=== PATIENT | female | born 1960 | race Caucasian/White ===

== ENCOUNTER → 2016-10-01 10:32 | Outpatient (CLI) | payer MEDICAID ==
[2015-10-19 08:49] VITALS: BMI 18.9
[~2016-10-01 10:32] MED LIST: BAYER CHEWABLE81 MG PO; CARAFATE1 G PO; ESTRACE1 MG PO; KLONOPIN1 MG PO; LOPRESSOR25 MG PO; PEPCID20 MG PO; PERCOCET 10/3251 TA1 PO; PHENERGAN25 MG RC; ROBAXIN-750750 MG PO; ZENPEP PO; ZOFRAN ODT4 MG/UDTAB PO
--- NOTE | 2016-10-16 14:37 | ST ---
PATIENT:ESTEFANY CAO MEDICAL RECORD: [id number] SEX: F LOCATION:[facility] ORDER #: ADMISSION DATE: 10/01/16 AGE OF PATIENT: 56 REFERRING PHYSICIAN: INTERPRETING PHYSICIAN: NARCISA MENESES MD DATE OF SERVICE: 10/01/2016 Nuclear Stress Test INDICATION: Chest pain of unknown etiology. She was stressed standard Lexiscan protocol with 32.4 mCi of sestamibi injected at peak stress, 11.9 mCi were used previously for rest images. FINDINGS: Gated SPECT reveals preserved ejection fraction greater than 60% with good wall motion and thickening and brightening throughout all segments. SPECT imaging sestamibi is used as myocardial fusion agent. There is homogeneous uptake throughout all segments at rest and stress with no evidence of inducible ischemia or previous infarction. OVERALL IMPRESSION: 1. This is a normal nuclear stress test with no evidence of inducible ischemia or previous infarction. 2. Gated SPECT reveals preserved ejection fraction greater than 60% in this patient with ongoing symptomatology. The current scan does not suggest the presence of hemodynamically significant coronary artery disease. Evaluate noncardiac etiology of chest pain. TRANSINT:[id number] Voice Confirmation ID: [id number] DOCUMENT ID: [id number] NARCISA MENESES MD at 1437 CC: [id number] DICTATION DATE: 10/02/16 1115 SCRUB NURSE: 10/03/16 0047 DEP CLI 10/01/16 [id number] [place] [address]
== END | disposition home or self-care (01) ==
LOC: D.NM 10:32
DX: R07.9 Chest pain, unspecified (principal)

== ENCOUNTER → 2017-01-09 09:37 | Outpatient (CLI) | payer MEDICAID ==
[2015-10-19 08:49] VITALS: BMI 18.9
== END | disposition home or self-care (01) ==
LOC: D.RAD 09:37
DX: R13.10 Dysphagia, unspecified (principal)

== ENCOUNTER 2017-04-16 11:42 | Emergency (ER) | payer MEDICAID ==
[2015-10-19 08:49] VITALS: BMI 18.9
== END 2017-04-16 16:00 | disposition home or self-care (01) ==
LOC: D.ER 11:42
DX: R51 Headache (principal); M54.2 Cervicalgia; M25.511 Pain in right shoulder; M25.521 Pain in right elbow; V43.52XA Car driver injured in collision with other type car in traffic accident, initial encounter; Y93.89 Activity, other specified; Y92.410 Unspecified street and highway as the place of occurrence of the external cause; I10 Essential (primary) hypertension

== ENCOUNTER 2017-04-25 18:43 | Emergency (ER) | payer MEDICAID ==
[2015-10-19 08:49] VITALS: BMI 18.9
[2017-04-25 19:38] LABS: BASOPHILS 0.8 % (0-2); EOSINOPHILS 2.6 % (0-7); HEMATOCRIT 36.8 % (36.0-48.0); HEMOGLOBIN 13.3 g/dL (12-16); IMMATURE GRANULOCYTES 0.2 % (0-5); LYMPHOCYTES 35.4 % (15-50); MCH 34.2 pg (26.0-34.0); MCHC 36.1 g/dL (31.0-37.0); MCV 94.6 fL (80.0-100.0); MEAN PLATELET VOLUME 10.5 fL (7.4-10.4); MONOCYTES 7.9 % (2-11); NEUTROPHILS 53.1 % (40-80); PLATELET COUNT 160 10x3/uL (130-400); RBC 3.89 10x6/uL (4.00-5.40); RDW 12.6 % (11.5-14.5); WBC 5.3 10x3/uL (4.8-10.8)
[2017-04-25 19:53] LABS: ANION GAP 15.8 mmol/L (8-16); BILIRUBIN - TOTAL 0.5 mg/dL (0.2-1.3); CALCIUM 9.3 mg/dL (8.5-10.1); CARBON DIOXIDE 24.9 mmol/L (21.0-32.0); CREATININE - SERUM 0.9 mg/dL (0.6-1.3); MAGNESIUM - SERUM 1.3 mg/dL (1.8-2.4); POTASSIUM - SERUM 3.7 mmol/L (3.5-5.1); PROTEIN - SERUM 7.4 g/dL (6.4-8.2)
== END 2017-04-25 22:05 | disposition home or self-care (01) ==
LOC: D.ER 18:43
PROVIDERS: Emergency Medicine
DX: R56.9 Unspecified convulsions (principal); F17.200 Nicotine dependence, unspecified, uncomplicated

== ENCOUNTER → 2017-05-29 10:07 | Outpatient (CLI) | payer MEDICAID ==
[2015-10-19 08:49] VITALS: BMI 18.9
[2017-05-29 10:50] LABS: ALBUMIN 3.7 g/dL (3.4-5.0); ANION GAP 13.2 mmol/L (8-16); BILIRUBIN - TOTAL 0.6 mg/dL (0.2-1.3); CALCIUM 9.1 mg/dL (8.5-10.1); CARBON DIOXIDE 26.8 mmol/L (21.0-32.0); CREATININE - SERUM 0.9 mg/dL (0.6-1.3); MAGNESIUM - SERUM 1.7 mg/dL (1.8-2.4); PROTEIN - SERUM 7.8 g/dL (6.4-8.2)
--- NOTE | 2017-06-02 07:59 | EEG ---
PATIENT:ESTEFANY CAO DATE OF SERVICE: 05/29/17 MEDICAL RECORD: [id number] DATE OF : 60 LOCATION: [facility] ADMISSION DATE: 05/29/17 REFERRING PHYSICIAN: INTERPRETING PHYSICIAN: YINKA MORENO MD DATE OF SERVICE: 05/29/2017 Referred as an outpatient by myself. EEG NUMBER: [id number] DATE OF EXAMINATION: 05/29/2017 at 12:00 noon. DATE OF : 1960 TECHNICAL DATA: This electroencephalographic recording consists of approximately 20 minutes of data collection utilizing the international 10/20 system of electrode placement and both referential and non-referential montages. Sixteen channels of electrocerebral recording are accompanied by 17th channel dedicated to the electrocardiographic rhythm and 2 channels of electromyographic recording. Recording is performed in the awake and sleep states utilizing activation by photic stimulation. ELECTROENCEPHALOGRAPHIC DATA: The awake state comprises only approximately 20% of the recorded electrocerebral activity. Electromyographic artifact is prominent and rapid eye movements are seen. The posterior dominant background consists of a well-developed symmetric semi-rhythmic waxing and waning alpha activity of 9-10 Hz, which is suppressed by eye opening. The drowsy state comprises approximately 60% of the recorded electrocerebral activity. Electromyographic artifact is diminished and rapid eye movements are not seen. The posterior dominant background is relatively suppressed. The transition to stage II sleep, which comprises the remaining portion of the recorded electrocerebral activity is heralded by the appearance of typical 15 Hz sleep spindles. Rare sharp vertex waves are observed. No abnormal or focal slowing is identified. No epileptiform discharges are seen. Photic stimulation induces no abnormal change in the recorded electrocerebral activity. INTERPRETATION: Normal (awake and asleep). This is a normal electroencephalographic recording. TRANSINT:[id number] Voice Confirmation ID: [id number] DOCUMENT ID: [id number] ELECTROENCEPHALOGRAM REPORT [id number] CAOESTEFANY MATA YINKA MORENO MD at 0759 CC: [id number] DICTATION DATE: 05/30/17830 SPORTS MANAGEMENT PROFESSOR: 05/30/17 1235 DEP CLI 05/29/17 [place] [address]
== END | disposition home or self-care (01) ==
LOC: D.CN 05-22 13:00
PROVIDERS: Psychiatry & Neurology Neurology
DX: R56.9 Unspecified convulsions (principal)

== ENCOUNTER → 2018-03-13 14:03 | Outpatient (CLI) | payer MEDICAID ==
[2015-10-19 08:49] VITALS: BMI 18.9
== END | disposition home or self-care (01) ==
LOC: D.CT 02-17 08:30
DX: R10.32 Left lower quadrant pain (principal)

== ENCOUNTER → 2018-03-17 11:39 | Outpatient (CLI) | payer MEDICAID ==
[2015-10-19 08:49] VITALS: BMI 18.9
== END | disposition home or self-care (01) ==
LOC: D.RAD 03-13 13:00
DX: R13.12 Dysphagia, oropharyngeal phase (principal)

== ENCOUNTER 2018-03-28 16:00 | Emergency (ER) | payer MEDICAID ==
[~2018-03-28] VITALS: Ht 154.9 cm; Wt 50.0 kg
[2018-03-28 16:04] VITALS: Ht 154.9 cm; Wt 50.0 kg
[2018-03-28 18:40] VITALS: BP 163/83
== END 2018-03-28 18:40 | disposition home or self-care (01) ==
LOC: D.ER 16:00
DX: G43.909 Migraine, unspecified, not intractable, without status migrainosus (principal); I10 Essential (primary) hypertension; I25.10 Atherosclerotic heart disease of native coronary artery without angina pectoris

== ENCOUNTER → 2018-06-27 09:46 | Outpatient (CLI) | payer MEDICAID ==
[2018-03-28 16:04] VITALS: BMI 20.8
== END | disposition home or self-care (01) ==
LOC: D.HCCARDIO 09:30
DX: I25.119 Atherosclerotic heart disease of native coronary artery with unspecified angina pectoris (principal)

== ENCOUNTER → 2018-07-17 06:05 | Outpatient (CLI) | payer MEDICAID ==
[2018-03-28 16:04] VITALS: BMI 20.8
[~2018-07-17 06:05] MED LIST changes: +KEPPRA500 MG PO; +NITROSTAT0.4 MG SL; +NORCO 10-325 TA1 TAB PO
== END | disposition home or self-care (01) ==
LOC: D.CT 06-09 10:30
DX: I73.9 Peripheral vascular disease, unspecified (principal); M79.605 Pain in left leg; M79.604 Pain in right leg

== ENCOUNTER 2018-07-17 07:08 | Outpatient (CLI) | payer MEDICAID ==
[~2018-07-17] VITALS: Ht 154.9 cm; Wt 52.3 kg
--- NOTE | ~2018-07-17 | HEMODYNAMI ---
PATIENT:ESTEFANY CAO MEDICAL RECORD: [id number] : 60 LOCATION:[facility] ADMISSION DATE: 07/17/18 Generatedon:07/17/20189:36 Patient name: ESTEFANY CAO Patient #: [id number] SSN: : 1960 Date of study: 07/17/2018 Page: Of Hemodynamic Procedure Report Patient Data Patient Demographics Procedure consent was obtained First Name: ESTEFANY Gender: Female Last Name: NASH : 1960 [facility] Initial: IONA Age: 57 year(s) Patient #: [id number] Race: Unknown Additional ID: [id number] Contact details Address: [address] [address] State: [place] City: [facility] Zip code: [address] Past Medical History Allergies Allergen Reaction Date Comments Reported Other allergy 07/17/2018 Flexeril, Fioricet, Sulfa, Tramadol, Toradol Admission Admission Data Admission Date: 07/17/2018 Admission Time: 7:08 Admit Source: Other Lab Results Lab Result Date: 07/17/2018 Lab Result Time: 7:30 Biochemistry Name Units Result Min Max BUN mg/dl 13 --(--*-)-- 7 18 Creatinine mg/dl 0.8 --(-*--)-- 0.6 1.3 CBC Name Units Result Min Max Hematocrit % 38.9 *-(----)-- 42 54 Hemoglobin g/dl 13.5 --(*---)-- 13.5 17.5 Procedure Procedure Types Cath Procedure Diagnostic Procedure LHC LHC w/Coronaries Sedation Charges Moderate Sedation up to 15 minutes Peripheral Cath Diagnostic Procedure Machine Featheredger And Reducer Peripheral Procedures Tjhtm-Pssiert-Zjy-Off Procedure Description Procedure Date Procedure Date: 07/17/2018 Procedure Start Time: 9:18 Procedure End Time: 9:32 Procedure Staff Name Function Nino Penn MD Performing Physician Rajat Vallecillo RT Monitor Donna Narvaez RT Scrub Parish Chong RN Nurse Geovanni Back RN Wardrobe Consultant Procedure Data Cath Procedure Fluoroscopy Diagnostic fluoroscopy Total fluoroscopy Time: 2.1 time: 2.1 min min Diagnostic fluoroscopy Total fluoroscopy dose: 297 dose: 297 mGy mGy Contrast Material Contrast Material Type Amount (ml) Isovue 300 149 Entry Location Entry Primary Successful Side Size Upsize Upsize Entry Closure Succes sful Closure Location (Fr) 1 (Fr) 2 (Fr) Remarks Device Remarks Femoral Right 5 Fr Exoseal artery Estimated blood loss: 5 ml Diagnostic catheters Device Type Used For End Catheter Placement MULTIPACK JL 4.0 5Fr Procedure catheter MULTIPACK 3DRC 5Fr Procedure catheter MULTIPACK Pigtail 5 Fr Procedure catheter Procedure Complications No complications Procedure Medications Medication Administration Route Dosage 0.9% NaCl I.V. 100 ml/hr Oxygen etCO2 Nasal cannula 2 l/min Heparin Flush Bag added to field 2 bags (1000units/500ml NS) Lidocaine 2% added to field 20 Versed I.V. 2 mg Fentanyl I.V. 100 mcg Versed I.V. 2 mg Fentanyl I.V. 100 mcg Hemodynamics Rest HGB: 13.5 (g/dl) Heart Rate: 70 (bpm) Pressure Samples Time Site Value (mmHg) Purpose Heart Use Rate(bpm) 9:25 LV 119/0,14 Snapshot 77 9:26 AO 119/60(87) Pullback 80 9:26 LV 121/4,15 Pullback 80 Gradients Valve Time Site 1 Site 2 Mean SEP/DFP Peak To Heart Use (mmHg) (sec/min) Peak Rate (mmHg) (bpm) Aortic 9:26 LV AO 9 17 2 80 121/4,15 119/60(87) Calculations Valve P-P Mean Valve Index Valve Source Name Gradient Area Flow (cm2) Aortic 2 9 2 9 Snapshots Pre Cath Intra NCS Post Cath Vital Signs Time Heart Resp SPO2 etCO2 NIBP (mmHg) Rhythm Pain Sedation Rate (ipm) (%) (mmHg) Status Level (bpm) 9:09:17 74 11 100 22.2 170/98(138) NSR 0 (11) 10(A) , No pain 9:13:37 72 14 99 34.2 131/77(105) NSR 0 (11) 10(A) , No pain 9:17:47 76 10 98 39.4 115/72(109) NSR 0 (11) 10(A) , No pain 9:21:55 69 15 98 45.3 104/59(79) NSR 0 (11) 10(A) , No pain 9:25:57 78 16 97 42.3 113/69(88) NSR 0 (11) 10(A) , No pain 9:30:02 82 15 97 40.9 107/64(82) NSR 0 (11) 10(A) , No pain Medications Time Medication Route Dose Verified Delivered Reason Notes Effe ctiveness by by 9:12:59 0.9% NaCl I.V. 100 Parish Parish Per ml/hr Lorigan Lorigan physician RN RN 9:13:09 Oxygen etCO2 2 Parish Parish Per Nasal l/min Lorigan Lorigan physician cannula RN RN 9:13:20 Heparin Flush added 2 Parish Parish used for Bag to bags Lorigan Lorigan procedure (1000units/500ml field RN RN NS) 9:13:34 Lidocaine 2% added 20ml Parish Parish for local to vial Lorigan Lorigan anesthetic field RN RN 9:17:42 Versed I.V. 2 mg Parish Parish for Lorigan Lorigan sedation RN RN 9:17:50 Fentanyl I.V. 100 Parish Parish for mcg Lorigan Lorigan sedation RN RN 9:21:14 Versed I.V. 2 mg Parish Parish for Lorigan Lorigan sedation RN RN 9:21:20 Fentanyl I.V. 100 Parish Parish for mcg Lorigan Lorigan sedation RN grip Log Time Note 8:45:19 Geovanni Back RN sent for patient. Start room use. 9:01:02 Informed consent obtained and on chart 9:01:04 Admit Source: Other 9:01:18 Diagnostic Cath status Elective 9::25 Time tracking: Regular hours (M-F 7:00 - 5:00) 9:01:29 Plan of Care:Hemodynamics will remain stable., Cardiac rhythm will remain stable., Comfort level will be maintained., Respiratory function will remain adequate., Patient/ family verbilizes understanding of procedure., Procedure tolerated without complication., Recovers from procedure without complications.. 9:01:33 Patient received from Pre/Post Procedure Room to [facility] 2 Alert and oriented. Tansferred to table in Supine position. 9:01:39 Warm blankets applied, and ladi hugger turned on for patient comfort. 9:01:40 Correct patient and procedure confirmed by team. 9:01:40 ECG and BP/O2 sat monitors applied to patient. 9::41 Pre-procedure instructions explained to patient. 9::41 Pre-op teaching completed and patient verbalized understanding. 9:01:42 Family in waiting room. 9:08:11 Vital chart was started 9:08:15 Baseline sample Acquired. 9:08:19 Baseline sample Acquired. 9:12:46 Rhythm: sinus rhythm 9:12:47 Full Disclosure recording started 9:12:59 0.9% NaCl 100 ml/hr I.V. was administered by Parish Chong RN; Per physician; 9:13:09 Oxygen 2 l/min etCO2 Nasal cannula was administered by Parish Chong RN; Per physician; 9:13:20 Heparin Flush Bag (1000units/500ml NS) 2 bags added to field was administered by Parish Chong RN; used for procedure; 9:13:20 Patient NPO since Midnight. 9:13:34 Lidocaine 2% 20ml vial added to field was administered by Parish Chong RN; for local anesthetic; 9:14:06 Patient allergic to Other allergyFlexeril, Fioricet, Sulfa, Tramadol, Toradol 9:14:08 Is the patient allergic to Iodine/contrast media? No. 9:14:09 Is patient on blood thinner?No 9:14:10 Patient diabetic? No. 9:14:12 Previous problem with sedation/anesthesia? No ? 9:14:13 Snore? Yes 9:14:14 Sleep apnea? No 9:14:14 Deviated septum? No 9:14:15 Opens mouth fully? Yes 9:14:16 Sticks out tongue? Yes 9:14:17 Airway obstruction? No ? 9:14:20 Dentures? Yes out 9:14:23 Pre procedure: right dorsailis pedis pulse 2+ Normal; easily identifiable; not easily obliterated 9:14:25 Pre procedure: left dorsailis pedis pulse 2+ Normal; easily identifiable; not easily obliterated 9:14:27 Patient pain scale 0/10 ?. 9:14:30 IV patent on arrival in left hand with 0.9% NaCl at [facility]. 9:15:10 Lab Result : BUN 13 mg/dl 9:15:10 Lab Result : Creatinine 0.8 mg/dl 9:15:10 Lab Result : Hemoglobin 13.5 g/dl 9:15:10 Lab Result : Hematocrit 38.9 % 9:15:13 Lab results completed and on chart. 9:15:16 Bilateral groins area was prepped with chlora-prep and draped in sterile fashion 9:15:17 Alarms reviewed by R. N. 9:15:17 Sharps counted by scrub and verified by R.N. 9:15:18 Use device set Femoral Dx 9:15:19 ACIST Syringe (87036) opened to sterile field. 9:15:20 Bag Decanter (2002S) opened to sterile field. 9:15:20 Medline Cath Pack ([id number]) opened to sterile field. 9:15:21 ACIST Hand Control (69664) opened to sterile field. 9:15:21 ACIST Manifold (95233) opened to sterile field. 9:15:23 Tegaderm 4 x 4 (1626W) opened to sterile field. 9:15:24 SHEATH 5FR [place] ([id number]) opened to sterile field. 9:15:24 DIAGNOSTIC Multipack 5Fr catheter set ([id number]) opened to sterile field. 9:15:25 DIAGNOSTIC WIRE .035 260cm J wire (264731) opened to sterile field. 9:15:30 Physician arrived 9:15:31 --------ALL STOP TIME OUT------ 9:15:31 Final Timeout: patient, procedure, and site verified with staff and physician. All members of the team are in agreement. 9:15:33 Bilateral groins site verified by team. 9:15:35 Physical assessment completed. ASA score P 2 - A patient with mild systemic disease as per Nino Penn MD. 9:15:38 Sedation plan: IV Moderate Sedation Medication:Versed, Fentanyl 9:17:42 Versed 2 mg I.V. was administered by Parish Chong RN; for sedation; 9:17:50 Fentanyl 100 mcg I.V. was administered by Parish Chong RN; for sedation; 9:18:31 Zero performed for pressure channel P1 9:18:37 Procedure started. 9:18:39 Local anesthetic to right femoral artery with Lidocaine 2% by Nino Penn MD.INITIAL ACCESS ONLY 9:18:45 A 5 Fr sheath was inserted into the Right Femoral artery 9:20:54 A MULTIPACK JL 4.0 5Fr catheter was advanced over the wire and used for Procedure. 9:21:14 Versed 2 mg I.V. was administered by Parish Chong RN; for sedation; 9:21:20 Fentanyl 100 mcg I.V. was administered by Parish Chong RN; for sedation; 9::28 LCA angiography performed. 9:22:47 Catheter exchanged over wire. 9::52 A MULTIPACK 3DRC 5Fr catheter was advanced over the wire and used for Procedure. 9:24:07 RCA angiography performed. 9:24:48 Catheter exchanged over wire. 9::52 A MULTIPACK Pigtail 5 Fr catheter was advanced over the wire and used for Procedure. 9:25:58 LV gram done using MCKEON 9:26:00 Injector settings: Ml/sec: 10, Volume: 20, 9:26:01 LV hemodynamics recorded. 9:26:05 EF : 60 % 9:26:40 Abdominal angiogram w/ runoff was performed. 9:27:56 Left leg runoff performed. 9:28:05 Right leg runoff performed. 9:28:35 Catheter removed. 9:31:31 EXOSEAL 5Fr (EX500) opened to sterile field. 9:31:40 Sheath removed intact; hemostasis achieved with Exoseal to the Right Femoral artery. 9:31:43 Procedure ended.(Physican Out) 9:32:00 Fluoroscopy time 02.10 minutes. 9:32:04 Fluoroscopy dose: 297 mGy 9:32:04 Flurop Dose total: 297 9:32:08 Contrast amount:Isovue 300 149ml. 9:32:10 Sharps counted by scrub and verified by R.N. 9:32:11 Insertion/operative site no bleeding no hematoma. 9:32:13 Post-op/insertion site Right Femoral artery dressed using a 4 x 4 and Tegaderm. 9:32:16 Post right femoral artery:stable, soft, clean and dry 9:32:19 Post-procedure physical assessment completed. ASA score P 2 - A patient with mild systemic disease as per Nino Penn MD. 9:32:21 Post procedure rhythm: unchanged. 9:32:23 Estimated blood loss: 5 ml 9:32:24 Post procedure instruction explained to patient.Patient verbalizes understanding. 9:32:25 Patient needs reinforcement of post procedure teaching. 9:32:35 Procedure type changed to Cath procedure, Diagnostic procedure, LHC, LHC w/Coronaries, Sedation Charges, Moderate Sedation up to 15 minutes, Peripheral Cath Diagnostic Procedure, Machine Featheredger And Reducer Peripheral Procedures, Gjgwk-Mgyxtbc-Gfz-Off 9:32:46 Procedure and supply charges have been captured, reviewed, submitted and are correct. 9:32:48 Procedure Complication : No complications 9:32:50 Vital chart was stopped 9:32:50 See physician's report for complete and final results. 9:32:52 Report given to Pre/Post Procedure Room. 9:32:54 Patient transfered to Pre/Post Procedure Room with Stretcher. 9:32:56 Procedure ended. 9:32:56 Full Disclosure recording stopped 9:33:02 End room use (Document Last) Device Usage Item Name Manufacture Quantity Catalog Hospital Part Current Minimal L ot# / Number Charge Number Stock Stock Serial# Code ACIST Acist 1 61755 312407 616138 470017 20 Syringe Medical (52284) Systems Inc Bag Microtek 1 2001S 698231 85735 629908 5 Decanter Medical Inc. () Medline Medline 1 [id number] 535502 70537 740061 5 Cath Pack ([id number]) ACIST Hand Acist 1 37364 299805 999232 632205 5 Control Medical (85930) Systems Inc ACIST Acist 1 34725 424670 125084 990112 5 Manifold Medical (42635) Systems Inc Tegaderm 4 3M 1 1626W 295412 697493 536219 5 x 4 (1626W) SHEATH 5FR Terumo 1 [id number] 878407 194693 772461 5 [place] (OPO812) DIAGNOSTIC Cardinal 1 [id number] 300970 22495 579565 30 Multipack Health 5Fr catheter set (WN4576) DIAGNOSTIC St Tee 1 396173 865447 114754 407209 30 WIRE .035 260cm J wire (841316) MULTIPACK Cardinal 1 072147 5 JL 4.0 5Fr Health catheter MULTIPACK Cardinal 1 676757 5 3DRC 5Fr Health catheter MULTIPACK Cardinal 1 824954 5 Pigtail 5 Health Fr catheter EXOSEAL 5Fr Cardinal 1 EX500 148316 002391 937513 10 (EX500) Health Signature Audit [place] Stage Time Signature Unsigned Intra-Procedure 07/17/2018 Rajat Vallecillo 9:36:16 AM RT(R) Signatures Monitor : Rajat Vallecillo RT Signature : Date : Time : [id number] [place] [address]
[2018-07-17 07:27] VITALS: BP 146/84; Ht 154.9 cm; Wt 52.3 kg
[2018-07-17 07:53] LABS: BASOPHILS 0.8 % (0-2); EOSINOPHILS 4.7 % (0-7); HEMATOCRIT 38.9 % (36.0-48.0); HEMOGLOBIN 13.5 g/dL (12-16); LYMPHOCYTES 37.2 % (15-50); MCH 33.9 pg (26.0-34.0); MCHC 34.7 g/dL (31.0-37.0); MCV 97.7 fL (80.0-100.0); MEAN PLATELET VOLUME 10.5 fL (7.4-10.4); MONOCYTES 5.9 % (2-11); NEUTROPHILS 51.4 % (40-80); PLATELET COUNT 151 10x3/uL (130-400); RBC 3.98 10x6/uL (4.00-5.40); RDW 12.7 % (11.5-14.5); WBC 5.9 10x3/uL (4.8-10.8)
[2018-07-17 07:59] LABS: CALC OSMOLALITY 275 mosm/kg (275-300); CALCIUM 9.1 mg/dL (8.5-10.1); CARBON DIOXIDE 26.2 mmol/L (21.0-32.0); CHLORIDE - SERUM 102 mmol/L (98-107); CREATININE - SERUM 0.8 mg/dL (0.6-1.3); GLUCOSE 101 mg/dL (74-106); POTASSIUM - SERUM 4.5 mmol/L (3.5-5.1); SODIUM 138 mmol/L (136-145); UREA NITROGEN 13 mg/dL (7-18); eGFR NON AFRICAN AMERICAN 78 mL/min (90-120)
--- NOTE | 2018-07-17 09:54 | NUR ---
RECEIVED PT FROM DIGITAL EXPERIENCE MANAGER, PT IS ALERT, DENIES ANY C/O. VSS, DRESSING TO RIGHT GROIN IS CDI, AREA IS SOFT AND NONTENDER. PEDAL PULSES PALPABLE. HOB IS FLAT. CALL LIGHT IN REACH.
--- NOTE | 2018-07-17 10:09 | NUR ---
PT IS ALERT, DENIES ANY C/O. DRESSING TO RIGHT GROIN IS CDI, PEDAL PULSES PALPABLE. HOB IS FLAT, CALL LIGHT IN REACH. VSS, FAMILY AT BEDSIDE.
--- NOTE | 2018-07-17 10:39 | NUR ---
ASSISTED PT ONTO BEDPAN, PT VOIDED QS. DRESSING TO RIGHT GROIN IS CDI, AREA IS SOFT AND NONTENDER. PEDAL PULSES PALPABLE. HOB IS FLAT. VSS, FAMILY AT BEDSIDE, CALL LIGHT IN REACH.
--- NOTE | 2018-07-17 11:05 | NUR ---
DRESSING CDI TO RIGHT GROIN, AREA IS SOFT AND NONTENDER. PEDAL PULSES PALPABLE. VSS, HOB IS FLAT, CALL LIGHT IN REACH.
--- NOTE | 2018-07-17 11:30 | NUR ---
DRESSING REMAINS CDI TO RIGHT GROIN, PEDAL PULSES PALPABLE. HOB ELEVATED 30 DEGREES AND SANDWICH SERVED.
--- NOTE | 2018-07-17 11:54 | NUR ---
1132 HOB ELEVATED 30 DEGREES, DRESSING CDI TO RIGHT GROIN, PEDAL PULSES PALPABLE. 1147 HOB FULLY ELEVATED. DRESSING REMAINS CDI TO RIGHT GROIN, AREA IS SOFT AND NONTENDER. DC INSTRUCTIONS REVIEWED [facility] PT AND FAMILY WHO VERBALIZE UNDERSTANDING.
--- NOTE | 2018-07-17 12:08 | NUR ---
1155 DRESSING REMAINS CDI TO RIGHT GROIN. PEDAL PULSES PALPABLE. IV DC'D WITH CATH INTACT AND PT IS DRESSING FOR DC TO HOME WITH ASSIST. 1205 PT IS DRESSED FOR DC TO HOME. DRESSING REMAINS CDI TO RIGHT GROIN. PT ESCORTED TO PRIVATE AUTO VIA WC BY NURSE WITH FAMILY MEMBER DRIVING HIM HOME.
== END 2018-07-17 12:05 | disposition home or self-care (01) ==
LOC: D.CATH 07:08
PROVIDERS: Internal Medicine Cardiovascular Disease
DX: I25.119 Atherosclerotic heart disease of native coronary artery with unspecified angina pectoris (principal); I73.9 Peripheral vascular disease, unspecified; M79.605 Pain in left leg; I10 Essential (primary) hypertension; E78.5 Hyperlipidemia, unspecified; R94.30 Abnormal result of cardiovascular function study, unspecified

== ENCOUNTER → 2018-07-21 07:03 | Outpatient (CLI) | payer MEDICAID ==
[2018-07-17 07:27] VITALS: BMI 21.7
== END | disposition home or self-care (01) ==
LOC: D.US 07:03
DX: I73.9 Peripheral vascular disease, unspecified (principal)

== ENCOUNTER 2018-08-01 10:30 | Inpatient (IN) | payer MEDICAID ==
--- NOTE | 2018-07-30 13:24 | HP ---
PATIENT: ESTEFANY CAO MEDICAL RECORD: [id number] ACCOUNT: [id number] LOCATION:[facility] : 60 ADMISSION DATE: 08/05/18 PCP: WILFREDO HARTMAN MD HISTORY AND PHYSICAL EXAMINATION ESTEFANY Lord (57yo, F) ID# [id number]. Date/Time07/21/2018 11:86CXYZV62/17/1961Service Dept.NPP_[facility] ClinicProviderDANISETH HARTMAN MDInsuranceMed Primary: [place] ([place]) Insurance # : [id number] PCP : OPAL SOLIS Referring Provider Name : OPAL SOLIS Employer Name : DISABLED Prescription: [employer] MEDICA[employer]MIN[employer]RATION - Member is eligible. Chief Complaint Coronary artery disease referral from [facility] Patient's Care Team Primary Care Provider (): OPAL SOLIS: [address], [place] [address], , Referring Provider (): OPAL SOLIS: [address], [place] [address], , Patient's Pharmacies [facility] (ERX): [address] [facility] [address], , Vitals BP:130/86 sitting L arm 07/21/2018 12:04 pm 140/80 sitting R arm 07/21/2018 12:04 pmBP Cuff Size:adult 07/21/2018 12:04 pm adult 07/21/2018 12:04 pmHR:72,reg 07/21/2018 12:05 pmHt:5 ft 1.5 in 07/21/2018 12:05 pmWt:112.8 lbs 07/21/2018 12:05 pmNotes:has had no chest pain since heart cath last . had a fall yesterday and hurt her back, otherwise normally is able to movee around and do what wants. 07/21/2018 12:06 pmBMI:21 07/21/2018 12:05 pmAllergies Reviewed Allergies FIORICETSULFA (SULFONAMIDE ANTIBIOTICS)TORADOLTRAMADOLMedications Reviewed Medications acetaminophen 300 mg-codeine 30 mg tablet TAKE 1 TABLET BY MOUTH EVERY 4 HOURS NCXVMG34/21/16 filledsurescriptsacyclovir 200 mg capsule TK 1 C PO FID06/24/17 filledsurescriptsatorvastatin 40 mg nelgou97/28/18 filledMagellan Medicaid AdministrationBayer Aspirin Internal Note: 81mg low dose05/10/15 enteredJeanna HerronClaritin-D 12 Hour 5 mg-120 mg tablet,extended release TK 1 T PO BID PRN11/20/17 filledsurescriptsclonazePAM 0.5 mg tablet TK TWO TS PO BID PRN109/11/17 filledsurescriptsestradiol 0.5 mg tablet Take 2 tablet(s) every week by oral route.05/10/15 Dalila Herronestradiol 1 mg tablet TK 1 T PO QD UTD01/16/18 filledsurescriptsfamotidine 20 mg tablet TK 1 T PO BID UTD107/22/17 filledDcgellan Medicaid AdministrationFluzone Quad (PF) 60 mcg(15 mcgx4)/0.5 mL intramuscular syringe ADM 0.5ML IM UTD108/13/17 filledsurescriptsHYDROcodone 10 mg-acetaminophen 325 mg tablet TK ON ET PO Q 6 H PRN 06/21/18 filledDcgellan Medicaid AdministrationlevETIRAcetam 500 mg /01/18 filledMagellan Medicaid Administrationmethocarbamol 500 mg xoymsq52/02/18 filledMagellan Medicaid Administrationmethocarbamol 750 mg tablet HISTORY AND PHYSICAL [id number] ESTEFANY CAO TK 1 T PO FOUR TIMES DAILY PRN108/26/17 filledMagellan Medicaid Administrationmetoprolol tartrate 25 mg yrzjxn33/28/18 filledMagellan Medicaid AdministrationmetroNIDAZOLE 500 mg atznvg60/24/16 filledMagellan Medicaid Administrationmirtazapine 30 mg tablet TK 1 T PO HS PRN09/23/17 filledMagellan Medicaid Administrationmirtazapine 45 mg tablet TK 1 T PO QHS VTLHBUNI24/01/18 filledDcgellan Medicaid Administrationnitroglycerin 0.[address] 1 TABLET PRN SUBLINGUAL ROUTE IHCDQVVA98/12/18 filledsurescriptsraNITIdine 150 mg capsule Take 1 capsule(s) twice a day by oral route.05/10/15 Dalila Herronsucralfate 1 gram hbfydv57/16/18 filledDcgellan Medicaid AdministrationtiZANidine 2 mg xfoerc91/02/18 filledDcgellan Medicaid AdministrationZenpep 5,000 unit-17,000 unit-24,000 unit capsule,delayed release TK 2 CS PO TID WITH MEALS AND TK 2 CS PO WITH SNACK UTD1 filledsurescriptsZenpep 5,000 unit-17,000 unit-27,000 unit capsule,delayed release TK 2 CS PO TID WITH MEALS AND TK 2 CS PO WITH SNACK UTD12/15/17 filledMagellan Medicaid AdministrationProblems Reviewed Problems Coronary arteriosclerosis - Onset: 07/21/2018 Abdominal pain Gastroesophageal reflux disease Gastro-esophageal reflux disease with esophagitis Gastritis Candidiasis of mouth Family History Reviewed Family History Mother- Heart diseaseFather- Heart disease - Hypertensive disorderSocial History Reviewed Social History General Occupation: HOUSEWIFE Marital status: Smoking Status: Former smoker Surgical History Reviewed Surgical History Other - TIF Other - CARTLIDGE REPAIR R KNEE Other - STENT PLACEMENT - [facility] Esophagogastroduodenoscopy (surg) - 10/19/2015 Anesth tubal ligation - 1982 Removal of tonsils - 1971 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 HPI Coronary Artery Disease F/U Reported by patient. Severity: symptoms are worsening; chest discomfort with household activities/yard work; has used Nitroglycerin (last took yesterday) Context: non-smoker Associated Symptoms: chest pain with exertion; left arm pain with exertion; nausea pain down the left arm, associated with exertion, somewhat relieved with rest. History of stents denies dyspnea, syncope, palpitations, nausea and vomiting ROS Additionally reports: as reviewed in the chart with the patient Her boyfriend is here with her disabled ROS as noted in the HPI Physical Exam Patient is a 57-year-old female. Constitutional: General Appearance well nourished and developed and healthy-appearing. Level of Distress NAD. Ambulation ambulating normally. Ears, Nose, Throat: Ears grossly normal hearing. Oropharynx: moist mucous membranes. Cardiovascular: Apical Impulse not displaced or no thrill. Heart Auscultation normal s1 and s2; no murmurs, rubs, or gallops; and RRR. Arterial Pulses 2+ bilateral radial. Edema no edema or varicosities. Lungs: Repiratory Effort no dyspnea. Percuss ion no hyperresonance or dullness or flatness. Auscultation no wheezing, rhonchi, or rales / crackles and breathing sounds normal and good air movement. Abdomen: Bowl Sounds normal. Inspection and Palpation no tenderness, guarding, or masses and soft and non-distended. Liver non-tender and no hepatomegaly. Spleen non-tender and no splenomegaly. Musculoskeletal System: Gait And Stance normal gait and stance. Digits and Nails normal nails and no cyanosis. Joints, Bones, and Muscles normal strength and movement of all extremities. Neurologic: Cranial Nerves grossly intact. Sensation grossly intact. Lymph Nodes: Lymph Nodes no cervical LAD or supraclavicular LAD. Eyes: Lids and Conjunctivae no discharge or pallor and non-injected. Pupils PERRLA. EOM EOMI. Sclera non-icteric. Neck: Neck no masses, enlarged lymph nodes, or carotid bruits and supple and trachea midline. Thyroid no enlargement or nodules and non-tender. Skin: Inspection and Palpation no rash, lesions, ulcers, or jaundice. Assessment / Plan 1. Coronary arteriosclerosis I25.10: Atherosclerotic heart disease of [place] coronary artery without angina pectoris HISTORY AND PHYSICAL [id number] ESTEFANY CAO Patient Instructions discussed warning signs for which she will seek immediate medical attention Discussion Notes we discussed coronary artery bypass graft, rationale for surgery, alternatives, benefits, and risks. She understands that the risks include but are not limited to bleeding, transfusion, infection, reoperation, graft closure, arrhyth mary ann, heart attack, stroke, and rarely . She gives consent Return to Office None recorded. Encounter Sign-Off Encounter signed-off by Wilfredo HARTMAN MD, 07/21/2018. Encounter performed and documented by Wilfredo HARTMAN MD Encounter reviewed & signed by Wilfredo HARTMAN MD on 07/21/2018 at 2:12pm WILFREDO HARTMAN MD at 1324 CC: [id number] DICTATION DATE: 07/21/18 1120 DIRECTOR OF CARDIOLOGY SERVICE LINE: VELASQUEZ 07/29/18 0942 PRE IN [place] [id number] [place] [id number]
[~2018-08-01] VITALS: Ht 154.9 cm; Wt 52.0 kg
[2018-08-01] MEDS ORDERED: LIPITOR40 MG PO (10:35)
[2018-08-01] MEDS ORDERED: REMERON15 MG PO (10:37)
[2018-08-01 11:56] LABS: BASOPHILS 0.6 % (0-2); EOSINOPHILS 7.5 % (0-7); HEMATOCRIT 35.2 % (36.0-48.0); HEMOGLOBIN 11.8 g/dL (12-16); IMMATURE GRANULOCYTES 0.2 % (0-5); LYMPHOCYTES 42.1 % (15-50); MCH 33.4 pg (26.0-34.0); MCHC 33.5 g/dL (31.0-37.0); MCV 99.7 fL (80.0-100.0); MEAN PLATELET VOLUME 9.9 fL (7.4-10.4); MONOCYTES 5.8 % (2-11); NEUTROPHILS 43.8 % (40-80); RBC 3.53 10x6/uL (4.00-5.40); RDW 13.3 % (11.5-14.5); WBC 6.4 10x3/uL (4.8-10.8)
[2018-08-01 11:59] LABS: PLATELET COUNT 198 10x3/uL (130-400)
[2018-08-01 12:07] LABS: APTT 33.5 SECONDS (22.8-39.4); INR 0.92 (0.85-1.17); PROTIME 11.9 SECONDS (11.6-15.0)
[2018-08-01 12:08] LABS: APPEARANCE CLEAR (CLEAR); BILIRUBIN NEGATIVE (NEGATIVE); COLOR STRAW (YELLOW); GLUCOSE NEGATIVE (NEGATIVE); KETONE NEGATIVE (NEGATIVE); NITRITE NEGATIVE (NEGATIVE); PROTEIN NEGATIVE (NEGATIVE); UROBILINOGEN NORMAL (NORMAL); WHITE CELLS - URINE 0-5 /hpf (0-5)
[2018-08-01 12:09] LABS: BACTERIA FEW /hpf (NONE SEEN); EPITHELIAL CELLS 0-5 /hpf (0-5); RED CELLS - URINE 0-5 /hpf (0-5)
[2018-08-01 12:20] LABS: ALBUMIN 3.3 g/dL (3.4-5.0); ANION GAP 12.3 mmol/L (8-16); BILIRUBIN - TOTAL 0.36 mg/dL (0.2-1.3); CALCIUM 8.9 mg/dL (8.5-10.1); CARBON DIOXIDE 28.4 mmol/L (21.0-32.0); CREATININE - SERUM 0.9 mg/dL (0.6-1.3); PHOSPHOROUS 3.8 mg/dL (2.5-4.9); POTASSIUM - SERUM 4.7 mmol/L (3.5-5.1); PROTEIN - SERUM 7.7 g/dL (6.4-8.2); T4 THYROXIN - FREE 0.99 ng/dL (0.76-1.46); THYROID STIMULATING HORMONE 1.06 uIU/mL (0.36-3.74); URIC ACID 4.5 mg/dL (2.6-7.2)
[2018-08-02 07:23] LABS: HEPATITIS C ANTIBODY <0.1 (0.0-0.9)
[2018-08-05] VITALS (18 sets, daily range): BP systolic 107–135; BP diastolic 49–73; BMI 21.2; BMI 22.3
--- NOTE | 2018-08-05 18:07 | NUR ---
PT ARRIVED TO ROOM 1721 SEDATED AND PLACED ON VENT BY RT, R IJ CVL DRESSING CDI WITH PLASMALYTE 100ML/HR AND AMIODARONE 10ML/HR, VERIFIED WITH DR HARTMAN TO RUN FOR 6 HOURS BEFORE CHANGING TO 5ML/HR, ZINACEF INITIATED, MIDSTERNAL AND SUBSTERNAL DRESSING CDI WITH SUBSTERNAL CT (2 SITES Y'D TOGETHER) BLOODY DRAINAGE NO AIR LEAK, SUBSTERNAL KIM DRAIN COMPRESSED WITH BLOODY DRAINAGE, CRITICORE LEWIS DRAINING YELLOW URINE, RLE HARVEST SITES CDI WITH COBAN FROM GROIN TO ANKLE AND ONE DAMIEN COMPRESSED WITH SCANT BLOODY DRAINAGE, FAMILY UPDATED BY DR HARTMAN AND AT BEDSIDE, DENY QUESTIONS
--- NOTE | 2018-08-05 19:00 | NUR ---
REC'D TO CARE. PT ON MECH VENT VIA OETT, S/P CABG. VSS. PT OPENS EYES TO NAME, FAY. BACK TO REST EASILY. IVFS INFUSING TO R IJ CVL, DSG C/D/I - SEE FLOWSHEET. INCISIONS AND DSGS PER FLOWSHEET. R RADIAL A-LINE, FLUSHED AND ZEROED WITH GOOD WAVE FORM NOTED. CRITICORE LEWIS PATENT AND DRAINING CLEAR, YELLOW URINE. ALARMS ON. WILL CONT 1:1 NURSING CARE.
--- NOTE | 2018-08-05 20:00 | NUR ---
ADMINSSION ASSESSMENT PER FLOWSHEET. NO FAMILY PRESENT AT THIS TIME.
--- NOTE | 2018-08-05 20:29 | NUR ---
PT WAKING UP, NODDING HEAD APPROP, BUT ANXIOUS. CALMED WHEN TALKED TO. VENT TO SIMV PER RT. PT BACK TO REST AT THIS TIME, NO SIGN OF DISTRESS.
--- NOTE | 2018-08-05 21:18 | NUR ---
VENT TO CPAP.
--- NOTE | 2018-08-05 21:36 | NUR ---
RR 20, POX 100%, NO SIGN OF DISTRESS. VSS.
--- NOTE | 2018-08-05 22:28 | NUR ---
PT EXTUBATED TO 4L NC. PT ALERT AND ORIENTED. C/O PAIN - EXPLAINED PRN PAIN MEDS AND WILL ADMIN PER ORDERS. PT WITH WEAK COUGH, INSTRUCTED ON SPLINTING CHEST AND THE IMPORTANCE OF DB&C. ALARMS ON AND C/L IN REACH.
--- NOTE | 2018-08-05 22:53 | NUR ---
PT RESTING QUIETLY, VSS.
--- NOTE | 2018-08-05 23:40 | NUR ---
PT TOLERATING ICE CHIPS. ADMIN PRN MORPHINE PER ORDERS AND PT C/O PAIN L SIDE AND BACK.
[2018-08-06] VITALS (35 sets, daily range): BP systolic 90–129; BP diastolic 50–73; Ht 154.9 cm; Wt 52.0 kg
--- NOTE | 2018-08-06 02:45 | NUR ---
PARTIAL BATH AND LEWIS CARE DONE. PT THEN DANGLED AT BS X 10MIN. WEAK COUGH - AGAIN DISCUSSED THE IMPORTANCE OF DB&C. BACK IN BED. ALARMS ON AND C/L IN REACH.
--- NOTE | 2018-08-06 03:00 | NUR ---
STERILE DSG CHANGE TO R IJ CVL, NO REDNESS OR SWELLING AT SITE. REASSESSMENT PER FLOWSHEET.
--- NOTE | 2018-08-06 04:00 | NUR ---
PT REPOSITIONED UP IN BED. I.S. STILL WEAK, 250. PT VERBALIZES UNDERSTANDING OF IMPORTANCE. ALARMS ON AND C/L IN REACH.
--- NOTE | 2018-08-06 04:54 | NUR ---
ADMIN PRN PERCOCET PER PT REQUEST.
[2018-08-06 06:24] LABS: HEMATOCRIT 26.1 % (36.0-48.0); HEMOGLOBIN 8.6 g/dL (12-16); MCH 33.1 pg (26.0-34.0); MCV 100.4 fL (80.0-100.0); MEAN PLATELET VOLUME 9.9 fL (7.4-10.4); RBC 2.6 10x6/uL (4.00-5.40); RDW 13.3 % (11.5-14.5); WBC 9.9 10x3/uL (4.8-10.8)
[2018-08-06 06:39] LABS: ALBUMIN 2.6 g/dL (3.4-5.0); ANION GAP 13.3 mmol/L (8-16); BILIRUBIN - TOTAL 0.56 mg/dL (0.2-1.3); CALCIUM 7.7 mg/dL (8.5-10.1); CARBON DIOXIDE 25.1 mmol/L (21.0-32.0); POTASSIUM - SERUM 5.4 mmol/L (3.5-5.1); PROTEIN - SERUM 5.3 g/dL (6.4-8.2)
--- NOTE | 2018-08-06 06:49 | NUR ---
DR. HARTMAN NOTIFIED OF SBP 86 WHILE RESTING. ORDER TO STAY IN BED FOR NOW AND USE NEOSYNEPHRINE PER ORDERS IF NEEDED.
--- NOTE | 2018-08-06 08:19 | NUR ---
REPORT RECEIVED. SHIFT ASSESSMENT COMPLETE. PT AWAKE AND CONVERSANT. BREAKFAST TRAY PROVIDED. MORNING MEDICATIONS ADMINISTERED. FAMILY NOW AT BEDSIDE.
--- NOTE | 2018-08-06 10:34 | NUR ---
DR HARTMAN BY. ASKED FOR ART LINE TO BE REMOVED.
--- NOTE | 2018-08-06 10:55 | OP ---
PATIENT NAME: ESTEFANY CAO MEDICAL RECORD: [id number] :60 LOCATION:D.[facility]I [id number] ADMISSION DATE:08/05/18 SURGEON: WILFREDO HARTMAN MD DATE OF OPERATION: 08/05/2018 SURGEON: Wilfredo Hartman MD ASSISTANTS: 1. Anthony Calvo MD 2. Santos Zuleta OPERATION PERFORMED: Coronary artery bypass graft times 3 (left internal mammary artery to LAD, reverse saphenous vein grafts from aorta to obtuse marginal and aorta to right coronary artery). PREOPERATIVE DIAGNOSIS: Coronary artery disease. POSTOPERATIVE DIAGNOSIS: Coronary artery disease. ANESTHESIA: General endotracheal anesthesia. ESTIMATED BLOOD LOSS: Total cardiopulmonary bypass with Cell Saver retransfusion. COMPLICATIONS: None. SPECIMENS: None. CONDITION: Stable. DISPOSITION: CV ICU. OPERATIVE FINDINGS: 1. Small heart and hyperexpanded lungs. 2. Thin-walled greater saphenous vein from the lower leg, but reasonable quality vein with largest-caliber portion used for the right coronary graft. 3. Good quality left internal mammary artery. The LAD was a 1.5-mm vessel with severe disease. 4. The obtuse marginal was a long tortuous vessel with multilevels of plaque, 1.5 mm. 5. The right coronary artery was 2.0 mm just before the bifurcation. OPERATIVE INDICATION: Coronary artery disease. OPERATIVE SUMMARY IN DETAIL: The patient was brought to the operating suite. General anesthesia was obtained. The patient was prepped and draped. Greater saphenous vein was harvested from right lower extremity utilizing bridging incisions. Side branches were divided with electrocautery and clips. The vessel was ligated proximally and distally and removed. Side branches were oversewn or tied. Leg was later closed in 2 layers. This portion of the surgery was performed by the field research assistant, Dr. Calvo, including inspecting the vein graft and suturing any leakage sites. The use of an field research assistant surgeon saved approximately 45 minutes of general anesthetic time. Median sternotomy incision was made. Subcutaneous tissue was divided with OPERATIVE REPORT [id number] ESTEFANY CAO electrocautery. Sternum was removed with a saw. Left hemisternum was elevated. Left pleural cavity was entered. Left internal mammary artery and vein were taken down as a pedicle graft. Sternal retractor was placed. Pericardium was opened. Heparin was given. Aorta was cannulated. Dual stage venous cannula was inserted. The patient was placed in cardiopulmonary bypass. Sites for distal anastomosis were selected. Antegrade cardioplegia needle was inserted. Aorta was clamped. Cardioplegia was given antegrade and this was repeated at 15-minute intervals including down the completed vein grafts. Distal anastomosis was performed in standard technique and proximal anastomosis with single cross-clamp technique. Aortic root de-aired by removing the clamp, deairing the root, tying the proximal anastomosis, and deairing the vein graft and restoring flow. Proximal and distal anastomotic sites were inspected for bleeding. Suture was used for hemostasis. The patient resumed a spontaneous rhythm, fully rewarmed, weaned off cardiopulmonary bypass, and was stable. The patient was decannulated. Protamine was given. The aortic cannulation site was oversewn with a pledgeted Prolene suture. Thorough irrigation was undertaken. All grafts lay appropriately. Hemostasis was ensured. Drains were placed in the mediastinum and the left pleural cavity. Pericardial fat was loosely reapproximated. Left chest was evacuated and irrigated. Internal mammary harvest site was inspected for bleeding. Sternum was closed with wires. Fascia was closed. Subcutaneous tissue was closed. Skin was closed. Dermabond was placed. Needle and sponge counts were reported as correct. The patient was taken to the ICU in stable condition. TRANSINT:[id number] Voice Confirmation ID: [id number] DOCUMENT ID: [id number] WILFREDO HARTMAN MD at 1055 CC: [id number] DICTATION DATE: 08/05/18 1749 FERMENTER CHAMPAGNE: 08/05/18 2216 ADM IN [place] [id number] [place] [address]
--- NOTE | 2018-08-06 12:25 | NUR ---
ART LINE REMOVED. PAIN MEDICATION GIVEN REQUESTED. LUNCH TRAY PROVIDED. PT ASKS TO WAIT A WHILE TO EAT.
--- NOTE | 2018-08-06 13:11 | NUR ---
CHANGE MANAGEMENT FACILITATOR AT BEDSIDE AT THIS TIME WITH PATIENT
--- NOTE | 2018-08-06 15:15 | NUR ---
LEFT KIM DRAIN EMPTIED. 30ML. RIGHT LEG DRESSING CHANGED PER ORDERS. ENCOURAGED COUGHING AND STRONGER WORK ON INCENTIVE SPIROMETRY. NOT BREATHING VERY DEEPLY. C/O HURTING TOO MUCH.
--- NOTE | 2018-08-06 16:39 | TEE ---
PATIENT:ESTEFANY CAO MEDICAL RECORD: [id number] LOCATION:[place] [address] AGE OF PATIENT: 57 ADMISSION DATE: 08/05/18 SEX: F REFERRING PHYSICIAN: INTERPRETING PHYSICIAN: NARCISA MENESES MD TRANSESOPHAGEAL ECHOCARDIOGRAM Date: 08/05/18 ELEONORA CHARGE Y INDICATIONS: CABG PREMEDICATIONS: PATIENT'S RESPONSE PROCEDURE DOPPLER MEASUREMENTS: LVIT LA PA RA LVOT RVOT Asc. Ao AV Gradient Peak AV Mean AV Area MV Gradient Peak MV Mean MV Area INTERPRETATION: Doppler: 2-D: COLOR FLOW DOPPLER NORMAL SALINE STUDY: MISCELLANOUS: DIAGNOSIS: PLAN: Riveter Pneumatic:2 Dr. [employer] Instructor: Rufino MENESES COMMENTS: HARTMAN PATIENT DATE OF SERVICE: PROCEDURE: Transesophageal echo evaluation of valvular structures during bypass surgery. FINDINGS: 1. Left ventricular chamber size is within normal limits. Left ventricular systolic function is normal. Overall ejection fraction estimated at 55%. 2. Left atrium, right atrium, and right ventricle chamber sizes are within TRANSESOPHAGEAL ECHOCARDIOGRAM REPORT [id number] AFSHAN CAO normal limits. 3. Valvular structures have normal structure and motion. 4. Doppler interrogation reveals no significant valvular insufficiency or stenosis. 5. No evidence of pericardial effusion or left ventricular thrombus. TRANSINT:[id number] Voice Confirmation ID: [id number] DOCUMENT ID: [id number] at 1639 CC: [id number] DICTATION DATE: 08/05/18 1616 BAKELITE MOLDER: 08/06/18 0746 ADM IN [place] [id number] [place] [address]
--- NOTE | 2018-08-06 17:17 | NUR ---
AFTERNOON MEDICATIONS PROVIDED. DINNER TRAY PROVIDED. FAMILY AT BEDSIDE AT THIS TIME.
--- NOTE | 2018-08-06 18:22 | NUR ---
PT SET UP TO THE SIDE OF BED AND DANGLED. PT STRUGGLED TO GO 5 MINUTES. WANTED TO STOP AT 4 BUT WAS STRONGLY ENCOURAGED TO GO A FULL 5 MINUTES. AFTER RETURNING TO LAYING POSITION WAS ENCOURAGED TO COUGH AND DEEP BREATHE. LET HER KNOW THAT TOMORROW SHE WILL BE GETTING UP TO THE CHAIR IN THE MORNING, AND THAT SHE WILL ALSO START WALKING WITH PHYSICAL THERAPY.
--- NOTE | 2018-08-06 18:31 | NUR ---
DR HARTMAN BY TO CHECK ON PATIENT. TRIED TO GET PT TO COUGH. VERY WEAK. ENCOURAGED TO USE I.S. AND COUGH. LET HIM KNOW PT HR UP TO 124 WHILE PT DANGLED. WANTS TO KEEP EYE ON ON RATE, MAY NEED TO ADD MEDICATION. PT ALSO RUNNING LOW GRADE TEMP. AT THIS TIME ORAL 99.3 BUT JOSHUA READS 38.6. PT HAS MULTIPLE LAYERS OF BLANKETS ON, REMOVED SOME AND EXPLAINED WHY. WILL CONTINUE TO MONITOR.
--- NOTE | 2018-08-06 19:21 | NUR ---
SHIFT ASSESSMENT COMPLETED PER FLOW SHEET. AAOX4. FOLLOWING COMMANDS. RT IJ CVL SALINE LOCKED, DRESSING C/D/I. X2 SUBSTERNAL CT TO 20 CM SUCTION. X1 LT SUBSTERNAL CT TO KIM DRAIN, COMPRESSED. LEWIS CATHETER TO GRAVITY SECURED. TEMPERATURE 38.6 C, WILL ADMINISTER PRN TYLENOL PER DOCTOR'S ORDERS. ROSE BRANNON AND SCD'S ON. SEE FLOW SHEET FOR COMPLETE ASSESMENT. WILL CONTINUE TO MONITOR.
--- NOTE | 2018-08-06 19:29 | NUR ---
PRN TYLENOL GIVEN FOR TEMPERATURE 38.6 C. WILL CONTINUE TO MONITOR.
--- NOTE | 2018-08-06 20:42 | NUR ---
SCHEDULED MEDS GIVEN, SEE EMAR FOR DETAILS. WATER WITH ICE PROVIDED.
--- NOTE | 2018-08-06 21:02 | NUR ---
COUGH/DEEP BREATHING AND USE OF IS ENCOURAGED. PULLING 250-500 X10 ON IS. COUGH WEAK AND NON-PRODUCTIVE. TEACHING PROVIDED ON IMPORTANCE OF USE OF IS AND COUGH AND DEEP BREATHING, SHE VERBALIZED UNDERSTANDING.
--- NOTE | 2018-08-06 21:07 | NUR ---
DAUGHTER CALLED, SECURITY CALL CODE OBTAINED, UPDATE GIVEN, QUESTIONS ANSWERED.
--- NOTE | 2018-08-06 23:04 | NUR ---
REASSESSMENT COMPLETED PER FLOW SHEET, SEE FOR DETAILS. COUGH/DEEP BREATHING AND USE OF IS ENCOURAGED. PULLING 500 X10 ON IS. DENIES NEEDS. CALL LIGHT WITHIN REACH. WILL CONTINUE TO MONITOR.
[2018-08-07] VITALS (24 sets, daily range): BP systolic 80–126; BP diastolic 51–75
--- NOTE | 2018-08-07 01:00 | NUR ---
RESTING, NO ACUTE DISTRESS NOTED. CALL LIGHT WITHIN REACH. WILL CONTINUE TO MONITOR.
--- NOTE | 2018-08-07 03:01 | NUR ---
REASSESSMENT COMPLETED PER FLOW SHEET, SEE FOR DETAILS. NO ACUTE DISTRESS NOTED. DENIES NEEDS. CALL LIGHT WITHIN REACH. WILL CONTINUE TO MONITOR.
--- NOTE | 2018-08-07 05:00 | NUR ---
RESTING, DENIES NEEDS. CALL LIGHT WITHIN REACH. WILL CONTINUE TO MONITOR.
--- NOTE | 2018-08-07 05:00 | NUR ---
COMPLETE BED BATH GIVEN WITH SOAP AND WATER. COMPLETE BED LINEN CHANGE PROVIDED. NEW HOSPITAL GOWN PROVIDED. RIGHT LEG DRESSING CHANGED. ASSISSTED OOB TO CHAIR. TOLERATED ALL WELL. AT BEDSIDE. CALL LIGHT WITHIN REACH. WILL CONTINUE TO MONITOR.
[2018-08-07 06:29] LABS: HEMATOCRIT 25.6 % (36.0-48.0); HEMOGLOBIN 8.4 g/dL (12-16); MCH 33.1 pg (26.0-34.0); MCHC 32.8 g/dL (31.0-37.0); MCV 100.8 fL (80.0-100.0); MEAN PLATELET VOLUME 9.8 fL (7.4-10.4); RBC 2.54 10x6/uL (4.00-5.40); RDW 13.3 % (11.5-14.5); WBC 8.5 10x3/uL (4.8-10.8)
--- NOTE | 2018-08-07 06:37 | NUR ---
DAUGHTER CALLED, SECURITY CALL CODE OBTAINED. UPDATE GIVEN. QUESTIONS ANSWERED.
--- NOTE | 2018-08-07 06:40 | NUR ---
ASSISSTED PATIENT OOB TO CHAIR X2 PERSON ASSIST. TOLERATED WELL. CALL LIGHT WITHIN REACH. BEDSIDE TABLE WITHIN REACH. DENIES NEEDS. WILL CONTINUE TO MONITOR.
--- NOTE | 2018-08-07 07:15 | NUR ---
SHIFT REPORT RECEIVED. AA&OX4. REPORTS PAIN 9/10 AT INCISIONAL SITE. LEWIS TEMP 38.7. ORAL TEMP 99.0. HR 111 SINUS TACHYCARDIC. ON ROOM AIR. RIJ CVL SL. MIDSTERNAL INCISION DRESSING CDI. SUBSTERNAL X [address] CT[address] ONE CONNECTED TO KIM DRAIN. EMPTIED 70ML ON KIM DRAIN AT THIS TIME. DRESSING CDI. LEWIS CATHERTER IN PLACE WITH CLEAR YELLOW URINE NOTED. IS BEST EFFOR 500 AT THIS TIME. PATIENT TEACHIN REGARDING IS EXERCISES PROVIDED AT THIS TIME. SHIFT ASSESSMENT COMPLETED AND CHARTED. CALL LIGHT IN REACH. WILL CONTINUE TO MONITOR.
[2018-08-07 07:30] LABS: ALBUMIN 2.3 g/dL (3.4-5.0); ALKALINE PHOSPHATASE 117 U/L (46-116); ALT (SGPT) 12 U/L (10-68); BILIRUBIN - TOTAL 0.51 mg/dL (0.2-1.3); CALC OSMOLALITY 283 mosm/kg (275-300); CALCIUM 8.9 mg/dL (8.5-10.1); CARBON DIOXIDE 28.5 mmol/L (21.0-32.0); CHLORIDE - SERUM 105 mmol/L (98-107); CREATININE - SERUM 0.8 mg/dL (0.6-1.3); GLUCOSE 127 mg/dL (74-106); PROTEIN - SERUM 5.5 g/dL (6.4-8.2); SODIUM 141 mmol/L (136-145); UREA NITROGEN 14 mg/dL (7-18); eGFR NON AFRICAN AMERICAN 78 mL/min (90-120)
[2018-08-07 07:31] LABS: POTASSIUM - SERUM 4.3 mmol/L (3.5-5.1)
--- NOTE | 2018-08-07 08:45 | NUR ---
AM MEDS GIVEN. PT DID NOT FEEL LIKE EATING. ONLY DRANK 1 APPLE JUICE. MORPHINE 2MG IV GIVEN FOR PAIN. CONTINUES ON CHAIR. WILL CONTINUE TO MONITOR.
--- NOTE | 2018-08-07 10:34 | MORECARE ---
CASE MANAGEMENT DISCHARGE SUMMARY PATIENT: ESTEFANY CAO UNIT: [id number] ADM DATE: 08/05/18 AGE: 57 : 60 SEX: F ROOM/BED: [facility] AUTHOR: DEEPTI OROZCO PHYSICIAN: REFERRING PHYSICIAN: JAMEL HARTMAN MD DATE OF SERVICE: 08/07/18 Discharge Plan Patient Name: ESTEFANY CAO Facility: [facility]:[place] : 1960 Planned Disposition: Home Anticipated Discharge Date: Discharge Date: Expected LOS: Initial Reviewer: [email or web address] Initial Review Date: 08/07/2018 Generated: 08/07/18 11:34 am Patient Name: ESTEFANY CAO Page [id number] at 1034 All edits/amendments must be made on the electronic document DICTATION DATE: 08/07/18 1034 STONEWORK TRACER: VELASQUEZ 08/07/18 1034 RPT#: [id number] DC DATE: STATUS: ADM IN [facility] [address] [place] [address] END OF REPORT
--- NOTE | 2018-08-07 10:59 | MORECARE ---
CASE MANAGEMENT DISCHARGE SUMMARY PATIENT: ESTEFANY CAO UNIT: [id number] ADM DATE: 08/05/18 AGE: 57 : 60 SEX: F ROOM/BED: [facility] AUTHOR: PAM,DOC PHYSICIAN: REFERRING PHYSICIAN: JAMEL HARTMAN MD DATE OF SERVICE: 08/07/18 Discharge Plan Patient Name: ESTEFANY CAO Facility: [facility]:[place] : 1960 Planned Disposition: Home Anticipated Discharge Date: Discharge Date: Expected LOS: Initial Reviewer: [email or web address] Initial Review Date: 08/07/2018 Generated: 08/07/18 11:58 am Comments DCP- Discharge Planning Updated by [email or web address]: Suri Singh on 08/07/18 9:[address] Patient Name: ESTEFANY CAO Admission Status: Elective Accout number: [id number] Admission Date: 08-05-2018 : 1960 Admission Diagnosis: Attending: JAMEL HARTMAN Current LOS: 2 Anticipated DC Date: Planned Disposition: Home Primary Insurance: MEDICAID [place] Discharge Planning Comments: CM met with patient at bedside. Patient states that she lives at home with family. Patient states that she plans on returning to her home upon discharge. Patient states that if she has prescriptions and they are on $4 list at [facility] that she will pay for them v/s using Medicaid slots. Patient denies any discharge needs at this time. CM will continue to follow and assist as needed with discharge planning / needs. Project Management Instructor: Suri Singh DCPIA - Discharge Planning Initial Assessment Updated by [email or web address]: Suri Singh on 08/07/18 10:51 am * Is the patient Alert and Oriented? Yes * How many steps to enter\exit or inside your home? * [facility] * Pharmacy [facility] IF $4 SCRIPT * Preadmission Environment Home with Family * ADLs Independent * Equipment None * List name and contact numbers for known caregivers / representatives who currently or will assist patient after discharge: VIDHI CAO - DAUGHTER- [phone] * Verbal permission to speak to the caregivers and representatives has been obtained from the patient. N/A * Community resources currently utilized None * Additional services required to return to the preadmission environment? No * Can the patient safely return to the preadmission environment? Yes * Has this patient been hospitalized within the prior 30 days at any hospital? No Last DP export: 08/07/18 9:34 a Patient Name: ESTEFANY CAO Page [id number] at 1059 All edits/amendments must be made on the electronic document DICTATION DATE: 08/07/181057 PILE DRIVING SUPERVISOR: VELASQUEZ 08/07/181057 RPT#: [id number] DC DATE: STATUS: ADM IN [facility] [address] [place] [address] END OF REPORT
--- NOTE | 2018-08-07 11:11 | NUR ---
RESTING IN CHAIR. NO ACUTE CHANGES FROM PREVIOUS ASSESSMENT. LEWIS TEMP 100.2. ORAL TEMP 98.8. READY TO BE TRANSFERRED BACK TO BED. WILL CONTINUE TO MONITOR.
--- NOTE | 2018-08-07 11:17 | NUR ---
REASSESSMENT COMPLETED. CONTINUES SITTING IN CHAIR. STILL REPORTS PAIN 12/29. LEWIS TEMP 100.7. CHECKED ORAL TEMP 98.8. WANTING TO GO BACK TO BED. WAITING ON LUNCH TRAY BEFORE TRANSFERRING HER BACK TO BED. WILL CONTINUE TO MONITOR.
--- NOTE | 2018-08-07 11:45 | NUR ---
PERCOCET 5MG PO GIVEN. MEAL TRAY DELIVERED AND SET UP. NO FURTHER NEEDS AT THIS TIME. WILL CONTINUE TO MONITOR.
--- NOTE | 2018-08-07 12:40 | NUR ---
ASSISSTED PT BACK TO BED. MORPHINE 2MG IV GIVEN FOR PAIN. PROVIDED A COMPLETE LINEN CHANGE. NO FURTHER NEEDS. WILL CONTINUE TO MONITOR.
--- NOTE | 2018-08-07 14:43 | NUR ---
REPORTS PAIN 8/10 ON INCISION SITE. MORPHINE 2MG IV GIVEN FOR PAIN. INSTRUCTED TO KEEP DOING IS EXERCISE 10 REPETITIONS EACH HOUR. PT'S EFFORT AT THIS TIME IS VERY WEAK BARELY REACHING 500. WILL CONTINUE TO MONITOR.
--- NOTE | 2018-08-07 15:48 | NUR ---
PT RESTING IN BED. RATES PAIN 8/10 AT INCISION SITE. PERCOCET 5MG TAB GIVEN PER ORDERS FOR PAIN. RE-ASSESSMENT COMPLETED. LEWIS TEMP 37.5. NO FURTHER NEED. WILL CONTINUE TO MONITOR.
--- NOTE | 2018-08-07 16:39 | NUR ---
CT X 2 DC'D BY SHANI HESS. MORPHINE 2MG GIVEN TO HELP WITH PAIN. LEWIS CATHETER DC'D WITH CATHETER TIP INTACT. R LEG DAMIEN DRAIN DC'D PER ORDERS. 4X4 DRESSING APPLIED TO AREA. FAMILY AT BEDSIDE. WILL CONTINUE TO MONITOR.
--- NOTE | 2018-08-07 19:00 | NUR ---
REPORT RECEIVED CARE ASSUMED. ASSESSMENT DONE SEE FLOW SHEET. DECREASE IN BP NOTED AL EXTREMITIES ELEVATED. ICU MONITORS IN PLACE ALARMS SET AND VERIFIED. WILL CONTINUE TO MONITOR.
--- NOTE | 2018-08-07 20:37 | NUR ---
DR HARTMAN INFORMED OF PT STATUS. OK TO TURN DIAZ ON IF SBP BELOW 80. TITRATE TO AFFECT. WILL CONTINUE TO MONITOR.
--- NOTE | 2018-08-07 23:00 | NUR ---
2100 MED GIVEN PER MAR. VSS. PT PUT ON BED SALTER PER REQUEST. VOID NOTED. 2300 REASSESSMENT DONE SEE FLOW SHEET. QUESTIONS ANSWERED TEACHING PROVIDED. VSS. WILL CONTINUE TO MONITOR.
[2018-08-08] VITALS (24 sets, daily range): BP systolic 78–129; BP diastolic 47–78
--- NOTE | 2018-08-08 01:00 | NUR ---
PT PUT ON BED SALTER PER PT REQUEST. VSS. NO SIGNS OF ACUTE DISTRESS NOTED.
[2018-08-08 05:59] LABS: HEMATOCRIT 23.2 % (36.0-48.0); HEMOGLOBIN 7.7 g/dL (12-16); MCH 33.3 pg (26.0-34.0); MCHC 33.2 g/dL (31.0-37.0); MCV 100.4 fL (80.0-100.0); MEAN PLATELET VOLUME 9.9 fL (7.4-10.4); RBC 2.31 10x6/uL (4.00-5.40); RDW 13.5 % (11.5-14.5); WBC 7.8 10x3/uL (4.8-10.8)
[2018-08-08 06:31] LABS: ALKALINE PHOSPHATASE 118 U/L (46-116); ALT (SGPT) 11 U/L (10-68); BILIRUBIN - TOTAL 0.44 mg/dL (0.2-1.3); CALC OSMOLALITY 272 mosm/kg (275-300); CALCIUM 8.3 mg/dL (8.5-10.1); CARBON DIOXIDE 28.9 mmol/L (21.0-32.0); CHLORIDE - SERUM 101 mmol/L (98-107); CREATININE - SERUM 0.8 mg/dL (0.6-1.3); GLUCOSE 99 mg/dL (74-106); POTASSIUM - SERUM 4.5 mmol/L (3.5-5.1); PROTEIN - SERUM 5.4 g/dL (6.4-8.2); SODIUM 136 mmol/L (136-145); UREA NITROGEN 14 mg/dL (7-18); eGFR NON AFRICAN AMERICAN 78 mL/min (90-120)
--- NOTE | 2018-08-08 07:20 | NUR ---
SHIFT REPORT RECEIVED. PT SITTING UP IN CHAIR. AA&OX4. REPORTS PAIN 9/10 AT INCISION SITE AROUND KIM DRAIN. MIDSTERNAL DRESSING CDI. SUBSTERNAL DRESSING CDI. L KIM DRAIN IN PLACE. EMPTIED 70ML OF SEROUSSANGUINOUS DRAINAGE USING STERILE TECHNIQUE AT THIS TIME. R LEG DRESSING CDI. HAS ADRIAN BRANNON ON LE. ORAL TEMP 98.5. SHIFT ASSESSMENT COMPLETED. CALL LIGHT IN REACH. WILL CONTINUE TO MONITOR.
--- NOTE | 2018-08-08 08:10 | NUR ---
ASSISTED ONTO BEDSIDE COMMODE. VOIDED ABOUT 350ML OF GILBERT URINE. ATE ABOUT 40% OF BREAKFAST AND HAD 240ML OF FLUID. NO FURTHER NEEDS. WILL CONTINUE TO MONITOR.
--- NOTE | 2018-08-08 09:20 | NUR ---
AMBULATED WITH PHYSICAL THERAPY ABOUT 100FT. REPORTS PAIN 9/10 AT INCISION SITE AROUND KIM DRAIN. DESCRIBES IT THROBBING/ACHING. SHES STATES "I CAN'T SEEM TO RELAX IT." MORPHINE 2MG IV GIVEN PER ORDERS. WILL CONTINUE TO MONITOR.
--- NOTE | 2018-08-08 10:29 | NUR ---
Nutrition Follow Up: Pt was asleep at the time of RD visit. Interview deferred. Chart reviewed. Pt is POD 3 CABG. Diet: AHA; Ensure TID PO Intake: 15% meal avg Wt stable No BM since admit I<O Meds and labs reviewed Rec continue current diet, supplement regimen. Will continue to honor food preferences within AHA diet. RD following.
--- NOTE | 2018-08-08 10:33 | NUR ---
SPOKE WITH PT REGARDING PAIN MANAGEMENT AT HOME. SHE STATES THAT SHE TAKES NORCO 10MG TABS AT HOME EVERY 3-6HRS NEEDED.
--- NOTE | 2018-08-08 10:50 | NUR ---
ASSISTED PT TO BATHROOM. AMBULATED WELL WITH ASSIST. VOIDED X 1. NO STOOL NOTED. EMPTIED 50ML OF FLUID FROM KIM DRAIN. DR. HARTMAN NOTIFIED OF CONSTANT PAIN. HE STATED TO CONTINUE WITH PERCOCET 5MG TAB AND MORPHINE 2MG IV NEEDED.
--- NOTE | 2018-08-08 11:56 | NUR ---
PT ASSISTED TO RESTROOM. VOIDED X 1. NO STOOL NOTED. PERCOCET 5MG TAB GIVEN FOR PAIN. MEAL TRAY DELIVERED AND SET UP. NO FUTHER NEEDS AT THIS TIME. WILL CONTINUE TO MONITOR.
--- NOTE | 2018-08-08 12:17 | NUR ---
ATE ABOUT 10% OF LUNCH TRAY. HAD 1 ENSURE (240ML). ASSITED BACK TO BED. PT WANTING TO REST A WHILE. WHEN TRANSFERRING TO BED HER PAIN LEVEL INCREASED. SHE WAS MOANING. REPOSITIONED FOR COMFORT. PILLOW PROVIDED FOR HER LEFT SIDE TO HELP HER FEEL MORE COMFORTABLY. WILL CONTINUE TO MONITOR.
--- NOTE | 2018-08-08 14:00 | NUR ---
ASSISTED PT TO RESTROOM. VOIDED X 1. NO STOOL. PT STATES THAT SHE JUS PASSED GAS. ASSISTED BACK TO BED. NO FURTHER NEEDS. WILL CONTINUE TO MONITOR.
--- NOTE | 2018-08-08 15:17 | NUR ---
ASSISTED TO RESTROOM. VOIDED ABOUT 100ML AT THIS TIME.
--- NOTE | 2018-08-08 16:14 | NUR ---
ASSISTED PT TO BATHROOM. VOIDED ABOUT 200ML OF YELLOW URINE. EMPTIED 40ML FROM KIM DRAIN SEROUSSANGUINOUS. ASSISTED TO CHAIR. FAMILY AT BEDSIDE. WILL CONTINUE TO MONITOR.
--- NOTE | 2018-08-08 16:52 | NUR ---
AMBULATED TO RESTROOM WITH MINIMAL ASSISTANCE. VOIDED ABOUT 350ML OF LIGHT YELLOW URINE.
--- NOTE | 2018-08-08 17:34 | NUR ---
AMBULATED TO RESTROOM. ASSISTED BACK TO BED. REPOSITIONED FOR COMFORT. DAUGHTER AT BEDSIDE. NO FURTHER NEEDS AT THIS TIME.
--- NOTE | 2018-08-08 18:29 | NUR ---
AMBULATED TO BATHROOM WITH STANDBY ASSIST. VOIDED ABOUT 200ML. BACK IN BED. REPOSITIONED FOR COMFORT. NO FURTHER NEEDS AT THIS TIME.
--- NOTE | 2018-08-08 19:00 | NUR ---
REPORT RECEIVED CARE ASSUMED. PT LAYING IN BED RESTING. VSS. ASSESSMENT DONE SEE FLOW SHEET. ICU MONITORS IN PLACE ALARMS SET AND VERIFIED. WILL CONTINUE TO MONITOR.
--- NOTE | 2018-08-08 22:57 | NUR ---
2100 MED GIVEN PER MAR. VSS. PT UP TO COMMODEX3. MINIMAL ASSISTANCE REQUIRED. 2257 REASSESSMENT DONE SEE FLOW SHEET. VSS.
[2018-08-09] VITALS (24 sets, daily range): BP systolic 81–139; BP diastolic 43–94
--- NOTE | 2018-08-09 02:59 | NUR ---
0100 WATER PROVIDED PER PT REQUEST. VSS. PT UP TO BATHROOM MULTIPLE TIMES MINIMAL ASSISTANCE GIVEN. 0300 REASSESSMENT DONE SEE FLOW SHEET. VSS.
--- NOTE | 2018-08-09 05:00 | NUR ---
PT WALKED TO BATHROOM NO ASSISTANCE. PARTIAL BATH GIVEN INDEPENDENTLY. LINEN CHANGE. GOWN CHANGE. VSS.
[2018-08-09 06:55] LABS: HEMOGLOBIN 8.6 g/dL (12-16); MCH 32.8 pg (26.0-34.0); MCHC 33.1 g/dL (31.0-37.0); MCV 99.2 fL (80.0-100.0); MEAN PLATELET VOLUME 10.2 fL (7.4-10.4); RBC 2.62 10x6/uL (4.00-5.40); RDW 13.3 % (11.5-14.5); WBC 7.2 10x3/uL (4.8-10.8)
[2018-08-09 06:58] LABS: ALBUMIN 2.2 g/dL (3.4-5.0); BILIRUBIN - TOTAL 0.43 mg/dL (0.2-1.3); CALCIUM 8.6 mg/dL (8.5-10.1); CARBON DIOXIDE 29.6 mmol/L (21.0-32.0); CREATININE - SERUM 0.9 mg/dL (0.6-1.3); POTASSIUM - SERUM 4.6 mmol/L (3.5-5.1); PROTEIN - SERUM 6.2 g/dL (6.4-8.2)
--- NOTE | 2018-08-09 08:30 | NUR ---
UP IN CHAIR AT THIS TIME EATING BREAKFAST AND VISITING WITH VISITOR. NO ACUTE DISTRESS NOTED. CONTINENT BOWEL MOVEMENT ALSO NOTED. PT TRANSFERS VIA STAND BY ASSIST. CALL LIGHT IN REACH. WILL CONTINUE PLAN OF CARE.
--- NOTE | 2018-08-09 10:52 | NUR ---
WILL ADMIN SCHEDULED ROBAXIN WHEN RECIEVE FROM PHARMACY.
--- NOTE | 2018-08-09 12:07 | NUR ---
NO ACUTE DISTRESS NOTED. UP IN CHAIR. CALL LIGHT IN REACH. NO ACUTE DISTERSS NOTED. VSS. WILL CONTINUE PLAN OF CARE.
--- NOTE | 2018-08-09 13:11 | NUR ---
PER DR HARTMAN, DC RT IJ CVL. ALSO AT THIS TIME KIM DRAIN EMPTIED, 50ML SEROSNAG FLUID NOTED PER KIM DRAIN. NO ACUTE DISTRESS NOTED. WILL CONTINUE PLAN OF CARE.
--- NOTE | 2018-08-09 14:28 | NUR ---
DEEPAK RODRIGUEZ AT THIS TIME PER [facility] ORDERS. CATHETER TIP INTACT. PRESSURE APPLIED FOR 5 MIN. THIS WAS DONE AFTER 3 SUITURES REMOVED FROM SITE. NO S/S BLEEDING. NO ACUTE DISTRESS NOTED. PT UP IN BED VISITING WITH FAMILY. WILL CONTINUE PLAN OF CARE.
--- NOTE | 2018-08-09 14:58 | NUR ---
UP IN BED VISITING WITH VISITORS AT THIS TIME. NO ACUTE DISTRESS NOTED. CALL LIGHT IN REACH. WILL CONTINUE PLAN OF CARE.
--- NOTE | 2018-08-09 16:16 | NUR ---
ASSITED TO TOILET, CONTINENT VOID NOTED AND BOWEL MOVEMENT NOTED. PT PERFORMED OWN ARIEL CARE. WALKED TO AND FROM TOILET VIA STAND BY ASSIST. WILL CONTINUE PLAN OF CARE.
--- NOTE | 2018-08-09 17:48 | NUR ---
UP IN BED WATCHING TV AT THIS TIME. DENIES ANY NEEDS. NO ACUTE DISTRESS NOTED. CALL LIGHT IN REACH. WILL CONTINUE PLAN OF CARE.
--- NOTE | 2018-08-09 19:00 | NUR ---
REPORT RECEIVED CARE ASSUMED. ASSESSMENT DONE SEE FLOW SHEET. VSS. NO SIGNS OF ACUTE DISTRESS NOTED. PT WALKS FREELY THROUGH OUT ROOM STEADY GAIT NOTED. PT VERBALIZES SHE FEELS MUCH STRONGER TODAY.
[2018-08-10] VITALS (24 sets, daily range): BP systolic 85–131; BP diastolic 49–77
--- NOTE | 2018-08-10 01:39 | NUR ---
2100 MEDS GIVEN PER SEP. VSS. NO DIFFICULTY SWALLOWING NOTED. 230 REASSESSMENT. DONE SEE FLOW SHEET. PT ABLE TO AMBULATE FREELY MINIMAL ASSISTANCE PROVIDED. STEADY GAIT NOTED. WILL CONTINUE TO MONITOR. 0100 WATER PROVIDED PER PT REQUEST. VSS.
--- NOTE | 2018-08-10 03:00 | NUR ---
REASSESSMENT COMPLETE. VSS NO SIGNS OF ACUTE DISTRESS NOTED.
--- NOTE | 2018-08-10 05:00 | NUR ---
PT UP WITH NO ASSISTANCE. VSS. INDEPENDENT BATH GIVEN. GOWN CHANGE PROVIDED. LINEN CHANGE PROVIDED. WILL CONTINUE TO MONITOR.
[2018-08-10 06:21] LABS: ALBUMIN 2.5 g/dL (3.4-5.0); ANION GAP 14.3 mmol/L (8-16); BILIRUBIN - TOTAL 0.44 mg/dL (0.2-1.3); CALCIUM 8.5 mg/dL (8.5-10.1); CARBON DIOXIDE 27.4 mmol/L (21.0-32.0); CREATININE - SERUM 0.9 mg/dL (0.6-1.3); POTASSIUM - SERUM 4.7 mmol/L (3.5-5.1); PROTEIN - SERUM 6.6 g/dL (6.4-8.2)
[2018-08-10 06:23] LABS: HEMOGLOBIN 9.5 g/dL (12-16); MCH 32.4 pg (26.0-34.0); MCHC 32.8 g/dL (31.0-37.0); MEAN PLATELET VOLUME 9.8 fL (7.4-10.4); RBC 2.93 10x6/uL (4.00-5.40); RDW 13.6 % (11.5-14.5); WBC 8.3 10x3/uL (4.8-10.8)
--- NOTE | 2018-08-10 07:30 | NUR ---
UP IN CHAIR AWAKE AT THIS TIME. DENIES ANY NEEDS. NO ACUTE DISTRESS NOTED. PT ALERT AND ORIENTED. WILL CONTINUE PLAN OF CARE.
--- NOTE | 2018-08-10 08:55 | NUR ---
DRESSINGS CHANGED AT THIS TIME PER DAILY CHANGE ORDERS. NO S/S INFECTION. NO DRAINGE. WILL CONTINUE PLAN OF CARE.
--- NOTE | 2018-08-10 09:54 | NUR ---
PT WALKED 500FT WITH PHYSICAL THERAPY, PER PHYISCAL THERAPY PT IS "FREE TO ROAM IN ROOM AND HALLWAY ON OWN."
--- NOTE | 2018-08-10 11:32 | NUR ---
UP IN BED WATCHING TV AT THIS TIME. NO ACUTE DISTRSES NOTED. KIM DRAIN HAD BEEN DC, DRESSING CDI TO SITE. WILL CONTINUE PLAN OF CARE.
--- NOTE | 2018-08-10 13:33 | NUR ---
UP IN BED VISITING WITH FAMILY. NO ACUTE DISTRESS NOTED. CALL LIGHT IN REACH. WILL CONTINUE PLAN OF CARE.
--- NOTE | 2018-08-10 15:32 | NUR ---
FAMILY AT BEDSIDE VISITING WITH PT AT THIS TIME. NO ACUTE DISTRESS NOTED. AMBULATES IN ROOM WITHOUT DIFFICULTY. WILL CONTINUE PLAN OF CARE.
--- NOTE | 2018-08-10 17:39 | NUR ---
INCONTINENT BOWEL MOVEMENT NOTED AT THIS TIME. TOTAL LINEN CHANGE PROVIDED, PT PROVIDED OWN ARIEL CARE. NO ACUTE DISTRESS NOTED. PT UP IN CHAIR NOW. CALL LIGHT IN REACH. WILL CONTINUE PLAN OF CARE.
--- NOTE | 2018-08-10 19:01 | NUR ---
REPORT RECEIVED, SHIFT ASSESSMENT COMPLETED PER FLOW SHEET. AAOX4. PPP. FOLLOWS COMMANDS. MOVES ALL EXTREMITIES. S1 AND S2 NOTED. ASSISSTED OOB TO USE BATHROOM, GAIT STEADY, ABLE TO AMBULATE INDEPENDENTLY. REPORTS X1 LIQUID BM. ASSISSTED BACK IN BED. DENIES OTHER NEEDS. CALL LIGHT AND BELONGINGS WITHIN REACH. SEE FLOW SHEET FOR COMPLETE ASSMENT. WILL CONTINUE TO MONITOR.
--- NOTE | 2018-08-10 21:00 | NUR ---
SCHEDULED MEDS GIVEN, WATER WITH ICE PROVIDED, DENIES NEEDS. CALL LIGHT WITHIN REACH. WILL CONTINUE TO MONITOR.
--- NOTE | 2018-08-10 23:02 | NUR ---
REASSESSMENT COMPLETED PER FLOW SHEET, SEE FOR DETAILS. NO ACUTE DISTRESS NOTED. VSS. ASSISSTED OOB TO BATHROOM, GAIT STEADY. X1 SOFT BM. DENIES OTHER NEEDS. CALL LIGHT WITHIN REACH. WILL CONTINUE TO MONITOR.
[2018-08-11] VITALS (10 sets, daily range): BP systolic 98–127; BP diastolic 57–78
--- NOTE | 2018-08-11 01:00 | NUR ---
RESTING, NO ACUTE DISTRESS NOTED.
--- NOTE | 2018-08-11 01:18 | NUR ---
CALL LIGHT ANSWERED, ASSISSTED OOB TO USE BATHROOM PER PATIENT'S REQUEST. GAIT STEADY. VOID X1. ASSISSTED BACK IN BED. DENIES OTHER NEEDS. CALL LIGHT WITHIN REACH.
--- NOTE | 2018-08-11 01:28 | NUR ---
C/O INCISIONAL PAIN, PRN PERCOCET GIVEN, SEE EMAR FOR DETAILS. DENIES OTHER NEEDS. CALL LIGHT WITHIN REACH.
--- NOTE | 2018-08-11 03:04 | NUR ---
REASSESSMENT COMPLETED PER FLOW SHEET, SEE FOR DETAILS. VSS. DENIES NEEDS. CALL LIGHT WITHIN REACH.
--- NOTE | 2018-08-11 05:30 | NUR ---
RIGHT LEG DRESSING CHANGED PER DOCTOR'S ORDERS. X5 INCISION SITES NOTED, ALEKSANDAR INTACT, INCISION SITES WELL APPROXIMATED, NO DRAINAGE. ASSISSTED OOB TO CHAIR. TOLERATED ALL WELL. CALL LIGHT WITHIN REACH. DENIES NEEDS. WILL CONTINUE TO MONITOR.
--- NOTE | 2018-08-11 08:28 | NUR ---
0700 PT RECIEVED UP IN CHAIR ALERT AN DORIENTED ON ROOM AIR VSS DENIES ALL NEEDS MIDSTERNAL INCISION OPEN TO AIR SUBSTERNAL DRESSING CDI R LEG HARVEST SITE DRESSINGS CDI, CONTNENT,SEE SHIFT ASSESSMENT FOR DETAILS 0815 TOOK AM MEDS AND ATE 75% BREAKFAST
[2018-08-11] MEDS ORDERED: PLAVIX75 MG PO (08:58)
[2018-08-11] MEDS ORDERED: LOPRESSOR25 MG PO (08:58)
[2018-08-11] MEDS ORDERED: COLACE100 MG PO (09:00)
--- NOTE | 2018-08-11 09:59 | NUR ---
DC INSTRUCTIONS REVIEWED BY VALE HESS AND MYSELF WITH PT, DENIES QUESTIONS
--- NOTE | 2018-08-11 10:17 | NUR ---
1010 PT ASSISTED TO CAR WITH DAUGHTER, AGAIN DENIES ALL DC QUESTIONS
--- NOTE | 2018-08-11 12:01 | MORECARE ---
CASE MANAGEMENT DISCHARGE SUMMARY PATIENT: ESTEFANY CAO UNIT: [id number] ADM DATE: 08/05/18 AGE: 57 : 60 SEX: F [facility] AUTHOR: PAM,DOC PHYSICIAN: REFERRING PHYSICIAN: JAMEL HARTMAN MD DATE OF SERVICE: 08/11/18 Discharge Plan Patient Name: ESTEFANY CAO Facility: [facility]:[place] : 1960 Planned Disposition: Home Anticipated Discharge Date: Discharge Date: 08/11/2018 Expected LOS: Initial Reviewer: [email or web address] Initial Review Date: 08/07/2018 Generated: 08/11/18 1:01 pm Comments DCP- Discharge Planning Updated by [email or web address]: Suri Singh on 08/07/18 9:[address] Patient Name: ESTEFANY CAO Admission Status: Elective Accout number: [id number] Admission Date: 08-05-2018 : 1960 Admission Diagnosis: Attending: JAMEL HARTMAN Current LOS: 2 Anticipated DC Date: Planned Disposition: Home Primary Insurance: MEDICAID [place] Discharge Planning Comments: CM met with patient at bedside. Patient states that she lives at home with family. Patient states that she plans on returning to her home upon discharge. Patient states that if she has prescriptions and they are on $4 list at [facility] that she will pay for them v/s using Medicaid slots. Patient denies any discharge needs at this time. CM will continue to follow and assist as needed with discharge planning / needs. Home Service Advisor: Suri Singh DCPIA - Discharge Planning Initial Assessment Updated by [email or web address]: Suri Singh on 08/07/18 10:51 am * Is the patient Alert and Oriented? Yes * How many steps to enter\exit or inside your home? * PCP Dr. Deyvi SLOAN * Pharmacy [facility] IF $4 [facility]CRIPT * Preadmission Environment Home with Family * ADLs Independent * Equipment None * List name and contact numbers for known caregivers / representatives who currently or will assist patient after discharge: VIDHI CAO - [facility]- [phone] * Verbal permission to speak to the caregivers and representatives has been obtained from the patient. N/A * Community resources currently utilized None * Additional services required to return to the preadmission environment? No * Can the patient safely return to the preadmission environment? Yes * Has this patient been hospitalized within the prior 30 days at any hospital? No Last DP export: 08/07/18 9:59 a Patient Name: ESTEFANY COA Page [id number] at 1201 All edits/amendments must be made on the electronic document DICTATION DATE: 08/11/18 1201 IRON SETTER: VELASQUEZ 08/11/18 1201 RPT#: [id number] DC DATE:08/11/18 STATUS: DIS IN [facility] [address] [place] [address] END OF REPORT
== END 2018-08-11 10:10 | disposition home or self-care (01) | DRG 236 ==
LOC: D.SDCHOLD 10:30 → D.CVICU 08-05 12:14 → D.SDCHOLD 08-05 13:30 → D.CVICU 08-07 13:56
PROVIDERS: ADMIT Thoracic Surgery (Cardiothoracic Vascular Surgery)
PROC: 021109W Bypass Coronary Artery, Two Arteries from Aorta with Autologous Venous Tissue, Open Approach (ICD-10-PCS; 2018-08-05)
PROC: 06BP0ZZ Excision of Right Saphenous Vein, Open Approach (ICD-10-PCS; 2018-08-05)
PROC: 5A1221Z Performance of Cardiac Output, Continuous (ICD-10-PCS; 2018-08-05)
PROC: 02100Z9 Bypass Coronary Artery, One Artery from Left Internal Mammary, Open Approach (ICD-10-PCS; principal; 2018-08-05 13:30)
DX: I25.10 Atherosclerotic heart disease of native coronary artery without angina pectoris (principal); K21.9 Gastro-esophageal reflux disease without esophagitis; D64.89 Other specified anemias

== ENCOUNTER → 2018-09-10 09:47 | Outpatient (CLI) | payer MEDICAID ==
[2018-08-06 13:39] VITALS: BMI 22.8
[~2018-09-10 09:47] MED LIST changes: +COLACE100 MG PO; +LIPITOR40 MG PO; +PLAVIX75 MG PO; +REMERON15 MG PO
[2018-09-10 10:59] LABS: ALBUMIN 3.7 g/dL (3.4-5.0); ANION GAP 16.1 mmol/L (8-16); BILIRUBIN - TOTAL 0.57 mg/dL (0.2-1.3); CARBON DIOXIDE 24.5 mmol/L (21.0-32.0); POTASSIUM - SERUM 4.6 mmol/L (3.5-5.1); PROTEIN - SERUM 7.6 g/dL (6.4-8.2)
[2018-09-10 11:12] LABS: HEMATOCRIT 36.2 % (36.0-48.0); HEMOGLOBIN 12.2 g/dL (12-16); MCH 33.3 pg (26.0-34.0); MCHC 33.7 g/dL (31.0-37.0); MCV 98.9 fL (80.0-100.0); MEAN PLATELET VOLUME 10.6 fL (7.4-10.4); RBC 3.66 10x6/uL (4.00-5.40); RDW 15.5 % (11.5-14.5); WBC 8.7 10x3/uL (4.8-10.8)
== END | disposition home or self-care (01) ==
LOC: D.LAB 09-03 08:45
PROVIDERS: Orthopaedic Surgery
DX: R91.8 Other nonspecific abnormal finding of lung field (principal); D64.9 Anemia, unspecified

== ENCOUNTER → 2018-12-25 15:10 | Outpatient (CLI) | payer MEDICAID ==
[2018-08-06 13:39] VITALS: BMI 22.8
[2018-12-25 16:33] LABS: CHOL - HDL RATIO 3.3 ratio (2.3-4.1); LDL-HDL RATIO 1.9 ratio (1.5-3.5)
== END | disposition home or self-care (01) ==
LOC: D.LABREF 15:10
PROVIDERS: ATTEND Family Medicine
DX: I10 Essential (primary) hypertension (principal); E78.5 Hyperlipidemia, unspecified

== ENCOUNTER → 2019-07-24 13:30 | Outpatient (CLI) | payer MEDICAID ==
[2018-08-06 13:39] VITALS: BMI 22.8
[2019-07-24 14:15] LABS: AMYLASE - SERUM 59 U/L (25-115); LIPASE 218 U/L (73-393)
== END | disposition home or self-care (01) ==
LOC: D.LAB 13:30
PROVIDERS: ATTEND Internal Medicine Gastroenterology
DX: K58.9 Irritable bowel syndrome, unspecified (principal); K86.1 Other chronic pancreatitis; R10.13 Epigastric pain; R12 Heartburn

== ENCOUNTER → 2019-10-08 09:03 | Outpatient (CLI) | payer MEDICAID ==
[2018-08-06 13:39] VITALS: BMI 22.8
== END | disposition home or self-care (01) ==
LOC: D.RAD 09-25 09:30
PROVIDERS: ATTEND Internal Medicine Gastroenterology
DX: R13.10 Dysphagia, unspecified (principal)

== ENCOUNTER → 2019-12-07 12:24 | Outpatient (CLI) | payer MEDICAID ==
[2018-08-06 13:39] VITALS: BMI 22.8
== END | disposition home or self-care (01) ==
LOC: D.RAD 10-02 13:00
PROVIDERS: ATTEND Internal Medicine Gastroenterology
DX: R13.12 Dysphagia, oropharyngeal phase (principal); K21.9 Gastro-esophageal reflux disease without esophagitis

== ENCOUNTER → 2020-03-11 12:27 | Outpatient (CLI) | payer MEDICAID ==
[2018-08-06 13:39] VITALS: BMI 22.8
== END | disposition home or self-care (01) ==
LOC: D.RAD 12:27
PROVIDERS: ATTEND Internal Medicine Gastroenterology
DX: F80.9 Developmental disorder of speech and language, unspecified (principal)